=== PATIENT | female | born 1990 | race American Indian/Alaskan Native ===

== ENCOUNTER 2017-07-16 18:34 | Inpatient (IN) | payer MEDICAID ==
--- NOTE | 2017-07-16 19:44 | History and Physical Report ---
History of Present Illness Date of examination: 07/16/17 Date of admission: 07/16/17 18:34 Chief complaint: Induction of labor History of present illness: Pt is a 26yo BF EDC 08/06/17; EGA 37 0/7 weeks presents from [facility] for induction of labor due to IUGR < 10% and BPP /10. She received care at [facility] since 18 weeks, and course has been unremarkable except for sickle cell carrier and size < dates for which she was referred to [facility]. records are available and GBS is negative. Past History Past Medical History: no pertinent history Past Surgical History: no surgical history Family/Genetic History: sickle cell/trait Social history: no significant social history, single - Obstetrical History Expected Date of Delivery: 08/06/17 Actual Gestation: 37 Week(s) 0 Day(s) Medications and Allergies Allergies Allergy/AdvReac Type Severity Reaction Status Date / Time No Known Allergies Allergy Verified 07/16/17 21:30 Review of Systems All systems: negative - Physical Exam Cardiovascular: Regular rate Lungs: Positive: Clear to auscultation Abdomen: Positive: normal appearance Genitourinary (Female): Positive: normal external genitalia Vagina: Positive: normal moisture Uterus: Positive: normal size, enlarged Extremities: Positive: normal - Obstetrical FHR: category 2 Uterine Contraction Monitor Mode: External Cervical Dilatation: 1.5 Cervical Effacement Percentage: 50 station: -2 Uterine Contraction Pattern: Absent Uterine Tone Measurement Phase: Resting Results Result Diagrams: 07/16/17 19:53 All other labs normal. Ultrasound: report reviewed (EFW 1749gm; 11/08) Assessment and Plan - Patient Problems (1) 37 weeks gestation of Onset Date: 07/16/17 Current Visit: Yes Status: Acute Plan to address problem: A: IUP @ 37 0/7 weeks IUGR < 10% P: Admit to L&D for cervidel/pitocin induction of labor (2) IUGR (intrauterine growth restriction) Onset Date: 07/16/17 Current Visit: Yes Status: Acute
[2017-07-16] MEDS ORDERED: ePHEDrine SULFATE IV PRN (19:53)
[2017-07-16] MEDS ORDERED: MINERAL OIL PO PRN (19:53)
[2017-07-16] MEDS ORDERED: STADOL IV PRN (19:53)
[2017-07-16] MEDS ORDERED: BRETHINE IVP PRN (19:53)
[2017-07-16] MEDS ORDERED: SUBLIMAZE IV PRN (19:53)
[2017-07-16] MEDS ORDERED: XYLOCAINE 2% INFILTRATI ONE (19:53)
[2017-07-16] MEDS ORDERED: NARCAN 0.4 MG/1 ML IV PRN (19:53)
[2017-07-16] MEDS ORDERED: ZOFRAN IV PRN (19:53)
[2017-07-16] MEDS ORDERED: BRETHINE SUB-Q PRN (19:53)
[2017-07-16] MEDS ORDERED: AMBIEN PO PRN (19:53)
[2017-07-16] MEDS ORDERED: PITOCin/NS 30 UNIT/500ML 30 UNITS/500 ML BAG IV SCH (20:00)
[2017-07-16] MEDS ORDERED: PITOCin/NS 20 UNIT/1000ML DRIP 20 UNITS/1,000 ML BAG IV SCH (20:00)
[2017-07-16 20:09] LABS: Hematocrit 30.2 % (30.3-42.9); Mean Corpuscular HGB Conc 33 % (30-34); Mean Corpuscular Hemoglobin 27 pg (28-32); Mean Corpuscular Volume 80 fl (79-97); Red Blood Count 3.76 M/mm3 (3.65-5.03)
[2017-07-16 20:17] LABS: Platelet Count 199 K/mm3 (140-440); Red Cell Distribution Width 39.2 % (13.2-15.2)
[2017-07-16] MEDS ORDERED: CERVIDIL VG ONE (21:30)
[2017-07-17] MEDS: LACTATED RINGERS 1,000 ML IV SCH ×3 (00:40→17:45)
--- NOTE | 2017-07-17 07:03 | Progress Note ---
Assessment and Plan - Patient Problems (1) 37 weeks gestation of Onset Date: 07/16/17 Current Visit: Yes Status: Acute Plan to address problem: A: IUP @ 37 1/7 weeks IUGR < 10% P: Continue with cervidel/pitocin induction of labor Expectant vaginal delivery (2) IUGR (intrauterine growth restriction) Onset Date: 07/16/17 Current Visit: Yes Status: Acute Subjective - Subjective Date of service: 07/17/17 Principal diagnosis: IUP @ 37 1/7 weeks; IUGR Interval history: Pt is a 26yo BF EDC 08/06/17; EGA 37 1/7 weeks presented from [facility] for induction of labor due to IUGR < 10% and BPP 11/08. She received Cervidel last night, and will begin Pitocin later today. Patient reports: movement normal, contractions, no new complaints, no loss of fluid, no vaginal bleeding Objective - Vital Signs Vital Signs: Vital Signs - 12hr 07/16/17 07/16/17 07/16/17 19:53 19:54 19:58 Temperature Pulse Rate 75 77 87 Respiratory Rate Blood Pressure 136/88 Blood Pressure [Left] O2 Sat by Pulse 98 98 Oximetry 07/16/17 07/16/17 07/16/17 20:03 20:05 20:08 Temperature Pulse Rate 100 H 69 74 Respiratory Rate Blood Pressure Blood Pressure [Left] O2 Sat by Pulse 97 91 99 Oximetry 07/16/17 07/16/17 07/16/17 20:13 20:18 20:23 Temperature Pulse Rate 93 H 82 82 Respiratory Rate Blood Pressure Blood Pressure [Left] O2 Sat by Pulse 99 100 100 Oximetry 07/16/17 07/16/17 07/16/17 20:28 20:33 20:38 Temperature Pulse Rate 79 79 77 Respiratory Rate Blood Pressure Blood Pressure [Left] O2 Sat by Pulse 100 100 99 Oximetry 07/16/17 07/16/17 07/16/17 20:43 20:48 20:53 Temperature Pulse Rate 85 75 84 Respiratory Rate Blood Pressure Blood Pressure [Left] O2 Sat by Pulse 99 100 99 Oximetry 07/16/17 07/16/17 07/16/17 20:54 20:58 21:03 Temperature Pulse Rate 75 74 78 Respiratory Rate Blood Pressure 134/85 Blood Pressure [Left] O2 Sat by Pulse 100 100 Oximetry 07/16/17 07/16/17 07/16/17 21:08 21:13 21:18 Temperature Pulse Rate 72 73 72 Respiratory Rate Blood Pressure Blood Pressure [Left] O2 Sat by Pulse 100 100 100 Oximetry 07/16/17 07/16/17 07/16/17 21:23 21:28 21:33 Temperature Pulse Rate 74 73 76 Respiratory Rate Blood Pressure Blood Pressure [Left] O2 Sat by Pulse 100 100 100 Oximetry 07/16/17 07/16/17 07/16/17 21:38 21:43 21:48 Temperature Pulse Rate 78 102 H 80 Respiratory Rate Blood Pressure Blood Pressure [Left] O2 Sat by Pulse 100 100 100 Oximetry 07/16/17 07/16/17 07/16/17 21:53 21:55 21:58 Temperature Pulse Rate 84 88 72 Respiratory Rate Blood Pressure 163/96 Blood Pressure [Left] O2 Sat by Pulse 100 100 Oximetry 07/16/17 07/16/17 07/16/17 22:03 22:08 22:13 Temperature Pulse Rate 81 69 70 Respiratory Rate Blood Pressure Blood Pressure [Left] O2 Sat by Pulse 100 100 100 Oximetry 07/16/17 07/16/17 07/16/17 22:18 22:48 22:54 Temperature Pulse Rate 70 86 94 H Respiratory Rate Blood Pressure 132/91 138/94 Blood Pressure [Left] O2 Sat by Pulse 100 97 Oximetry 07/16/17 07/16/17 07/16/17 22:59 23:04 23:09 Temperature Pulse Rate 84 79 86 Respiratory Rate Blood Pressure Blood Pressure [Left] O2 Sat by Pulse 100 100 100 Oximetry 07/16/17 07/16/17 07/16/17 23:14 23:19 23:24 Temperature 97.1 F L Pulse Rate 80 74 78 Respiratory 18 Rate Blood Pressure 136/99 Blood Pressure 114/66 [Left] O2 Sat by Pulse 100 100 100 Oximetry 07/16/17 07/16/17 07/16/17 23:26 23:27 23:29 Temperature Pulse Rate 81 79 71 Respiratory Rate Blood Pressure 140/103 114/66 Blood Pressure [Left] O2 Sat by Pulse 100 Oximetry 07/16/17 07/16/17 07/16/17 23:34 23:39 23:44 Temperature Pulse Rate 74 82 74 Respiratory Rate Blood Pressure Blood Pressure [Left] O2 Sat by Pulse 100 100 100 Oximetry 07/16/17 07/16/17 07/16/17 23:49 23:54 23:55 Temperature Pulse Rate 77 69 79 Respiratory Rate Blood Pressure 125/75 Blood Pressure [Left] O2 Sat by Pulse 100 100 Oximetry 07/16/17 07/17/17 07/17/17 23:59 00:04 00:09 Temperature Pulse Rate 65 70 66 Respiratory Rate Blood Pressure Blood Pressure [Left] O2 Sat by Pulse 100 100 100 Oximetry 07/17/17 07/17/17 07/17/17 00:14 00:19 00:24 Temperature Pulse Rate 67 68 71 Respiratory Rate Blood Pressure Blood Pressure [Left] O2 Sat by Pulse 100 100 100 Oximetry 07/17/17 07/17/17 07/17/17 00:29 00:34 00:39 Temperature Pulse Rate 66 78 90 Respiratory Rate Blood Pressure Blood Pressure [Left] O2 Sat by Pulse 100 100 100 Oximetry 07/17/17 07/17/17 07/17/17 00:44 00:49 00:54 Temperature Pulse Rate 87 100 H 80 Respiratory Rate Blood Pressure Blood Pressure [Left] O2 Sat by Pulse 100 100 100 Oximetry 07/17/17 07/17/17 07/17/17 00:59 01:04 01:09 Temperature Pulse Rate 98 H 61 73 Respiratory Rate Blood Pressure Blood Pressure [Left] O2 Sat by Pulse 100 100 100 Oximetry 07/17/17 07/17/17 07/17/17 01:14 01:19 01:24 Temperature Pulse Rate 61 68 62 Respiratory Rate Blood Pressure Blood Pressure [Left] O2 Sat by Pulse 100 100 100 Oximetry 07/17/17 07/17/17 07/17/17 01:29 01:34 01:39 Temperature Pulse Rate 71 73 63 Respiratory Rate Blood Pressure Blood Pressure [Left] O2 Sat by Pulse 100 100 100 Oximetry 07/17/17 07/17/17 07/17/17 01:44 01:49 01:54 Temperature Pulse Rate 63 63 71 Respiratory Rate Blood Pressure Blood Pressure [Left] O2 Sat by Pulse 100 100 99 Oximetry 07/17/17 07/17/17 07/17/17 01:55 02:41 02:46 Temperature Pulse Rate 75 65 62 Respiratory Rate Blood Pressure 115/76 Blood Pressure [Left] O2 Sat by Pulse 99 99 Oximetry 07/17/17 07/17/17 07/17/17 02:51 02:54 02:56 Temperature Pulse Rate 65 62 65 Respiratory Rate Blood Pressure 121/79 Blood Pressure [Left] O2 Sat by Pulse 98 99 Oximetry 07/17/17 07/17/17 07/17/17 03:01 03:06 03:11 Temperature Pulse Rate 60 69 83 Respiratory Rate Blood Pressure Blood Pressure [Left] O2 Sat by Pulse 99 99 100 Oximetry 07/17/17 07/17/17 07/17/17 03:16 03:21 03:26 Temperature Pulse Rate 73 57 L 85 Respiratory Rate Blood Pressure Blood Pressure [Left] O2 Sat by Pulse 99 99 100 Oximetry 07/17/17 07/17/17 07/17/17 03:31 03:36 03:41 Temperature Pulse Rate 61 63 66 Respiratory Rate Blood Pressure Blood Pressure [Left] O2 Sat by Pulse 98 99 98 Oximetry 07/17/17 07/17/17 07/17/17 03:46 03:51 03:54 Temperature Pulse Rate 61 66 72 Respiratory Rate Blood Pressure 137/88 Blood Pressure [Left] O2 Sat by Pulse 99 98 Oximetry 07/17/17 07/17/17 07/17/17 03:56 04:01 04:06 Temperature Pulse Rate 87 71 55 L Respiratory Rate Blood Pressure Blood Pressure [Left] O2 Sat by Pulse 100 98 99 Oximetry 07/17/17 07/17/17 07/17/17 04:11 04:16 04:21 Temperature Pulse Rate 65 61 66 Respiratory Rate Blood Pressure Blood Pressure [Left] O2 Sat by Pulse 99 99 98 Oximetry 07/17/17 07/17/17 07/17/17 04:26 04:31 04:36 Temperature Pulse Rate 66 63 65 Respiratory Rate Blood Pressure Blood Pressure [Left] O2 Sat by Pulse 99 99 99 Oximetry 07/17/17 07/17/17 07/17/17 04:41 04:46 04:51 Temperature Pulse Rate 69 70 74 Respiratory Rate Blood Pressure Blood Pressure [Left] O2 Sat by Pulse 99 99 99 Oximetry 07/17/17 07/17/17 07/17/17 04:55 04:56 05:01 Temperature Pulse Rate 76 65 63 Respiratory Rate Blood Pressure 169/98 Blood Pressure [Left] O2 Sat by Pulse 100 99 Oximetry 07/17/17 07/17/17 07/17/17 05:06 05:11 05:16 Temperature Pulse Rate 64 100 H 63 Respiratory Rate Blood Pressure Blood Pressure [Left] O2 Sat by Pulse 100 100 99 Oximetry 07/17/17 07/17/17 07/17/17 05:21 05:26 05:31 Temperature Pulse Rate 85 64 81 Respiratory Rate Blood Pressure Blood Pressure [Left] O2 Sat by Pulse 100 98 99 Oximetry 07/17/17 07/17/17 07/17/17 05:36 05:41 05:46 Temperature Pulse Rate 62 72 61 Respiratory Rate Blood Pressure Blood Pressure [Left] O2 Sat by Pulse 99 98 98 Oximetry 07/17/17 07/17/17 07/17/17 05:51 05:54 05:56 Temperature Pulse Rate 76 73 71 Respiratory Rate Blood Pressure 110/62 Blood Pressure [Left] O2 Sat by Pulse 98 98 Oximetry 07/17/17 07/17/17 07/17/17 06:01 06:06 06:11 Temperature Pulse Rate 74 77 86 Respiratory Rate Blood Pressure Blood Pressure [Left] O2 Sat by Pulse 98 98 97 Oximetry 07/17/17 07/17/17 07/17/17 06:16 06:21 06:25 Temperature Pulse Rate 72 82 97 H Respiratory Rate Blood Pressure Blood Pressure [Left] O2 Sat by Pulse 98 99 93 Oximetry 07/17/17 07/17/17 07/17/17 06:26 06:31 06:32 Temperature Pulse Rate 70 88 90 Respiratory Rate Blood Pressure Blood Pressure [Left] O2 Sat by Pulse 99 98 92 Oximetry 07/17/17 07/17/17 07/17/17 06:36 06:41 06:55 Temperature Pulse Rate 78 83 68 Respiratory Rate Blood Pressure Blood Pressure [Left] O2 Sat by Pulse 98 99 99 Oximetry 07/17/17 07:00 Temperature Pulse Rate 59 L Respiratory Rate Blood Pressure Blood Pressure [Left] O2 Sat by Pulse 99 Oximetry - Exam Abdomen: Present: normal appearance, soft Uterus: Present: normal FHR: category 1 Uterine Contraction Monitor Mode: External - Labs Labs: Abnormal Labs 07/16/17 19:53 WBC 14.4 H Hgb 10.0 L Hct 30.2 L MCH 27 L RDW 39.2 H Laboratory Results - last 24 hr 07/16/17 07/16/17 19:53 19:53 WBC 14.4 H RBC 3.76 Hgb 10.0 L Hct 30.2 L MCV 80 MCH 27 L MCHC 33 RDW 39.2 H Plt Count 199 Blood Type O POSITIVE Antibody Screen Negative
[2017-07-17] MEDS: PITOCin/NS 30 UNIT/500ML 30 UNITS/500 ML BAG IV SCH ×3 (14:20→16:42)
[2017-07-17] MEDS ORDERED: SUBLIMAZE IV PRN (19:00)
[2017-07-17] MEDS ORDERED: LANSINOH TP PRN (19:27)
[2017-07-17] MEDS ORDERED: TYLENOL PO PRN (19:27)
[2017-07-17] MEDS ORDERED: PHENERGAN PO PRN (19:27)
[2017-07-17] MEDS ORDERED: DULCOLAX PR PRN (19:27)
[2017-07-17] MEDS ORDERED: BENADRYL PO PRN (19:27)
[2017-07-17] MEDS ORDERED: TUCKS PAD TP PRN (19:27)
[2017-07-17] MEDS ORDERED: PHENERGAN PR PRN (19:27)
[2017-07-17] MEDS ORDERED: ZOFRAN IV PRN (19:27)
[2017-07-17] MEDS ORDERED: MILK OF MAGNESIA PO PRN (19:27)
--- NOTE | 2017-07-17 19:27 | Procedure Note ---
OB Delivery Note - Delivery Date of Delivery: 07/17/17 Surgeon: ALIX GORE Estimated blood loss: 100cc - Vaginal Delivery presentation: vertex Delivery position: OA Intrapartum events: other(please specify) (IUGR) Delivery induction: cervidil Delivery augmentation: rupture of membranes, pitocin Delivery monitor: external FHT, external uterine Route of delivery: Delivery placenta: spontaneous Delivery cord: 3 umbilical vessels Episiotomy: none Delivery laceration: none Anesthesia: none Delivery comments: Infant delivered OA over intact perineum without anesthesia. Infant delivered to awaiting Peds/RT. - A at 1 minute: 8 at 5 minutes: 9 Gender: Male (1701gms)
[2017-07-17] MEDS ORDERED: SODIUM CHLORIDE FLUSH SYRINGE 10 ML IV SCH (20:00)
[2017-07-17] MEDS ORDERED: PITOCin/NS 20 UNIT/1000ML DRIP 20 UNITS/1,000 ML BAG IV SCH (20:00)
[2017-07-17] MEDS: MOTRIN PO SCH (21:31)
[2017-07-17] MEDS: COLACE PO SCH (21:32)
[2017-07-17] MEDS: FEOSOL PO SCH (21:32)
[2017-07-17] MEDS: NORCO 5/325 PO PRN (23:14)
[2017-07-18] MEDS: MOTRIN PO SCH ×4 (00:15→18:31)
[2017-07-18] MEDS ORDERED: BOOSTRIX IM ONE (06:00)
[2017-07-18 08:26] LABS: Hematocrit 25.7 % (30.3-42.9); Hemoglobin 8.7 gm/dl (10.1-14.3)
[2017-07-18] MEDS: NORCO 5/325 PO PRN ×2 (09:30→16:25)
--- NOTE | 2017-07-18 11:14 | Progress Note ---
Assessment and Plan - Patient Problems (1) 37 weeks gestation of Onset Date: 07/16/17 Current Visit: Yes Status: Resolved (2) IUGR (intrauterine growth restriction) Onset Date: 07/16/17 Current Visit: Yes Status: Resolved (3) (normal spontaneous vaginal delivery) Onset Date: 07/18/17 Current Visit: Yes Status: Resolved Plan to address problem: A: S/P - PPD #1 Doing well hypertension - asymptomatic P: Will begin Labetolol 100mg BID Anticipate discharge to home tomorrow. (4) Acute blood loss anemia Onset Date: 07/18/17 Current Visit: Yes Status: Resolved Subjective - Subjective Date of service: 07/18/17 Principal diagnosis: s/p - PPD #1 Interval history: Pt is feeling well without complaints. Bleeding improved. Baby in NICU. Patient reports: appetite normal, voiding normally, pain well controlled, flatus , ambulating normally [place]: doing well, in NICU, bottle feeding Objective - Vital Signs Latest vital signs: Vital Signs Temp Pulse Resp BP BP Pulse Ox 07/18/17 09:30 20 07/18/17 09:27 97.6 F 86 18 118/90 97 07/18/17 00:00 98.6 F 76 18 114/68 07/17/17 21:00 98.6 F 66 16 135/69 07/17/17 20:45 65 155/91 07/17/17 20:42 155/91 07/17/17 20:30 68 152/88 07/17/17 20:27 68 152/88 07/17/17 20:23 98 F 07/17/17 20:22 65 20 139/101 07/17/17 20:16 65 139/101 07/17/17 20:05 76 18 136/73 07/17/17 20:01 76 136/73 07/17/17 19:46 65 152/82 07/17/17 19:42 65 18 152/82 07/17/17 19:33 66 18 137/77 137/77 07/17/17 18:55 85 145/84 07/17/17 18:27 56 L 133/78 07/17/17 18:14 77 98 07/17/17 18:09 71 98 07/17/17 18:04 60 99 07/17/17 17:59 62 97 02/16/18 17:54 70 159/104 97 1618 17:49 64 99 1618 17:44 79 98 1618 17:39 85 98 18 17:34 68 98 18 17:29 72 98 1618 17:24 67 98 18 17:19 68 98 18 17:14 60 98 18 17:09 59 L 98 18 17:04 65 98 1618 16:59 60 98 1618 16:54 64 138/94 98 18 16:49 67 96 18 16:44 85 98 18 16:39 60 98 18 16:34 69 97 18 16:29 76 98 18 16:24 73 96 18 16:19 71 97 18 16:14 67 98 07/17/17 16:09 63 97 18 16:08 57 L 143/79 07/17/17 16:04 101 H 97 07/17/17 16:03 97.5 F L 64 18 143/79 98 07/17/17 14:54 66 138/88 18 14:23 81 131/88 07/17/17 13:05 90 98 07/17/17 13:00 94 H 98 07/17/17 12:55 93 H 136/94 98 07/17/17 12:52 97.4 F L 101 H 18 136/94 98 07/17/17 11:47 75 99 18 11:42 74 99 18 11:37 63 98 07/17/17 11:32 80 97 07/17/17 11:31 80 80 L 07/17/17 11:27 71 98 07/17/17 11:22 72 97 07/17/17 11:17 74 96 Intake and Output 07/17/1707/18/18 07/18/17 22:59 06:59 14:59 Intake Total 1543.933 700 240 Output Total 1100 2000 Balance 443.933 -1300 240 Intake: IV 1003.933 Lactated Ringers 1,000 ml 1000 @ 125 mls/hr IV DIRECT [facility] Rx#:[id number] PITOCin/NS 30 UNIT/500ML 3.933 30 units In 500 ml @ 1 MILLIUNITS/MIN 1 mls/hr IV TITR [facility] Rx#:[id number] Oral 240 400 240 Intake, Free Water 300 300 Output: Urine 1100 2000 Void 1100 2000 Other: Total, Intake Amount 240 200 240 Total, Output Amount 700 600 # Voids Void 1 1 Estimated Blood Loss 100 - Exam Breasts: Present: deferred Cardiovascular: Present: Regular rate Lungs: Present: Clear to auscultation Abdomen: Present: normal appearance, soft Uterus: Present: normal, firm, fundal height below umbilicus Extremities: Present: normal - Labs Labs: Abnormal lab results 07/18/17 Range/Units 08:03 Hgb 8.7 L (10.1-14.3) gm/dl Hct 25.7 L (30.3-42.9) % Laboratory Tests 07/16/17 07/16/17 07/16/17 19:53 19:53 19:53 WBC 14.4 H RBC 3.76 Hgb 10.0 L Hct 30.2 L MCV 80 MCH 27 L MCHC 33 RDW 39.2 H Plt Count 199 RPR Nonreactive Blood Type O POSITIVE Antibody Screen Negative 07/18/17 08:03 WBC RBC Hgb 8.7 L Hct 25.7 L MCV MCH MCHC RDW Plt Count RPR Blood Type Antibody Screen
[2017-07-18] MEDS: FEOSOL PO SCH ×2 (12:24→22:51)
[2017-07-18] MEDS: PRENATAL VITAMIN PO SCH (12:24)
[2017-07-18] MEDS: NORMODYNE PO SCH ×2 (12:25→22:52)
[2017-07-18] MEDS ORDERED: M-M-R II VACCINE SUB-Q ONE (19:27)
[2017-07-18] MEDS: COLACE PO SCH (22:52)
[2017-07-19] MEDS: MOTRIN PO SCH (00:20)
[2017-07-19] MEDS: NORCO 5/325 PO PRN (04:00)
--- NOTE | 2017-07-19 09:15 | Progress Note ---
Assessment and Plan - Patient Problems (1) 37 weeks gestation of Onset Date: 07/16/17 Current Visit: Yes Status: Resolved (2) IUGR (intrauterine growth restriction) Onset Date: 07/16/17 Current Visit: Yes Status: Resolved (3) (normal spontaneous vaginal delivery) Onset Date: 07/18/17 Current Visit: Yes Status: Resolved Plan to address problem: A: S/P - PPD #2 Doing well hypertension - improved on labetolol 100mg BID P: May go to home today (4) Acute blood loss anemia Onset Date: 07/18/17 Current Visit: Yes Status: Resolved Subjective - Subjective Date of service: 07/19/17 Principal diagnosis: s/p - PPD #2 Interval history: Pt is feeling well without complaints. She denies headaches or blurred vision. Bleeding improved. Baby in NICU. Patient reports: appetite normal, voiding normally, pain well controlled, flatus , ambulating normally : doing well, in NICU Objective - Vital Signs Latest vital signs: Vital Signs Temp Pulse Resp BP BP Pulse Ox 07/19/17 00:00 98.6 F 78 16 114/68 07/18/17 22:52 81 130/79 07/18/17 16:25 97.5 F L 81 18 116/80 97 07/18/17 12:25 72 118/90 07/18/17 09:30 20 07/18/17 09:27 97.6 F 86 18 118/90 97 Intake and Output 07/18/17 07/19/17 07/19/17 22:59 06:59 14:59 Intake Total 120 800 Balance 120 800 Intake: Oral 120 200 Intake, Free Water 600 Other: Total, Intake Amount 120 200 # Voids Void 1 - Exam Breasts: Present: deferred Cardiovascular: Present: Regular rate Lungs: Present: Clear to auscultation Abdomen: Present: normal appearance, soft Uterus: Present: normal, firm, fundal height below umbilicus Extremities: Present: normal - Labs Labs: Laboratory Tests 07/16/17 07/16/17 07/16/17 19:53 19:53 19:53 WBC 14.4 H RBC 3.76 Hgb 10.0 L Hct 30.2 L MCV 80 MCH 27 L MCHC 33 RDW 39.2 H Plt Count 199 RPR Nonreactive Blood Type O POSITIVE Antibody Screen Negative 07/18/17 08:03 WBC RBC Hgb 8.7 L Hct 25.7 L MCV MCH MCHC RDW Plt Count RPR Blood Type Antibody Screen
--- NOTE | 2017-07-19 10:00 | Discharge Summary ---
Providers - Providers Date of Admission: 07/17/17 00:52 Date of discharge: 07/19/17 Attending physician: ALIX GORE Primary care physician: ALIX GORE Hospitalization Reason for admission: induction of labor, IUP at term Delivery: Other procedures: none complications: none Discharge diagnosis: IUP at term delivered [place] baby: male Hospital course: Unremarkable except hypertension controlled with Labetolol 100mg BID Condition at discharge: Good Disposition: DC-01 TO HOME OR SELFCARE - Discharge Diagnoses (1) 37 weeks gestation of Status: Resolved (2) IUGR (intrauterine growth restriction) Status: Resolved (3) (normal spontaneous vaginal delivery) Status: Resolved (4) Acute blood loss anemia Status: Resolved Plan - Discharge Medications Prescriptions: Ferrous Sulfate [Feosol 325 MG tab] 325 mg PO BID #60 tablet HYDROcodone/APAP 5-325 [[place] 5-325 mg TAB] 1 each PO Q6H PRN #10 tablet PRN Reason: Pain, Moderate (4-6) Ibuprofen [Motrin 600 MG tab] 600 mg PO Q6HR #30 tablet Labetalol [Normodyne TAB] 100 mg PO BID #60 tablet Vit-Fe Fumar-FA [ Vitamin] 1 each PO QDAY #30 tablet - Provider Discharge Summary Activity: routine, no sex for 6 weeks, no heavy lifting 4 weeks, no strenuous exercise Diet: routine Instructions: routine Additional instructions: [] Smoking cessation referral if applicable(refer to patient education folder for contact #) [] Refer to [facility]'s [facility] Booklet Call your doctor immediately for: * Fever > 100.5 * Heavy vaginal bleeding ( >1 pad per hour) * Severe persistent headache * Shortness of breath * Reddened, hot, painful area to leg or breast * Drainage or odor from incision. * Keep incision clean and dry at all times and follow doctor's instructions regarding bathing/showering BP check in 1 week - Follow up plan Follow up: ALIX GORE MD [Primary Care Provider] - 7 Days
[2017-07-19] MEDS: PRENATAL VITAMIN PO SCH (11:57)
[2017-07-19] MEDS: FEOSOL PO SCH (11:57)
[2017-07-19 11:58] VITALS: BP 116/78
[2017-07-19] MEDS: NORMODYNE PO SCH (11:58)
== END 2017-07-19 14:50 | disposition home or self-care (01) | DRG 774 ==
LOC: UNDOADMIN 18:34 → LD 18:34 → OB 07-17 21:02
PROVIDERS: ADMIT Obstetrics & Gynecology; ATTEND Obstetrics & Gynecology
PROC: 3E0P7VZ Introduction of Hormone into Female Reproductive, Via Natural or Artificial Opening (ICD-10-PCS; principal; 2017-07-17)
PROC: 10E0XZZ Delivery of Products of Conception, External Approach (ICD-10-PCS; 2017-07-17)
PROC: 3E0234Z Introduction of Serum, Toxoid and Vaccine into Muscle, Percutaneous Approach (ICD-10-PCS; 2017-07-18)
DX: O36.5930 Maternal care for other known or suspected poor fetal growth, third trimester, not applicable or unspecified (principal); O16.5 Unspecified maternal hypertension, complicating the puerperium; Z37.0 Single live birth; Z3A.37 37 weeks gestation of pregnancy; O76 Abnormality in fetal heart rate and rhythm complicating labor and delivery; D62 Acute posthemorrhagic anemia; O90.81 Anemia of the puerperium; Z23 Encounter for immunization
CPT/HCPCS: 36415; 59200; 85014; 85018; 85027; 86592; 86850; 86900; 86901; 88307; J2590; J3010; J7120